=== PATIENT | male | born 1995 | race Two or more races ===

== ENCOUNTER 2017-03-12 23:01 | Emergency (ER) | payer MEDICAID ==
[2017-03-13 01:40] VITALS: BP 130/95
== END 2017-03-13 01:40 | disposition home or self-care (01) ==
LOC: ED 23:01
DX: S61.412A Laceration without foreign body of left hand, initial encounter (principal); J45.909 Unspecified asthma, uncomplicated; W26.8XXA Contact with other sharp object(s), not elsewhere classified, initial encounter; Y93.89 Activity, other specified; Y99.8 Other external cause status; Y92.89 Other specified places as the place of occurrence of the external cause
CPT/HCPCS: J2001